=== PATIENT | female | born 1990 | race Caucasian/White ===

== ENCOUNTER → 2017-02-21 | Outpatient (CLI) | payer OTHER ==
[2017-02-17 08:59] VITALS: BMI 47.2
[2017-02-21 12:32] VITALS: BP 116/71; PULSE 97; RESP 16; TEMP 98.2
--- NOTE | 2017-02-21 13:13 | P.CONS ---
History of Present Illness - Reason for Consult Consult date: 02/21/17 Headache - Chief Complaint Headache - History of Present Illness This is a 26-year-old female with history of headache that started in September 2015 with no precipitating events. At that time the patient had what seems to be trigger point injection in the cervical paravertebral area in the ER which gave her 6 months of pain relief, however her pain has been getting worse lately and the headache has been happening at least twice every week it occasionally lasts for about 48 hours. The headache is associated with nausea and vomiting and also photophobia. It is like throbbing headache. It starts on the right side in the occipital area and then radiates to the front and also to the left side. The patient denies any new neurologic symptoms with that. The patient was referred to our clinic by her neurologist for a trial of occipital nerve block. Past Medical History Past Medical History: Thyroid Disorder Additional Past Medical History / Comment(s): migraines History of Any Multi-Drug Resistant Organisms: MRSA Year Discovered:: 06/15/16 MDRO Source:: left fifth finger Past Surgical History: Section, Cholecystectomy Past Anesthesia/Blood Transfusion Reactions: No Reported Reaction Past Psychological History: Depression Smoking Status: Never smoker Past Alcohol Use History: None Reported Past Drug Use History: None Reported - Past Family History Mother Family Medical History: No Reported History Medications and Allergies Home Medications Medication Instructions Recorded Confirmed Type Levothyroxine Sodium [Synthroid] 200 mcg PO DAILY 10/26/16 02/21/17 History Levothyroxine Sodium [Synthroid] 225 mcg PO DAILY 10/26/16 02/21/17 History Allergies Allergy/AdvReac Type Severity Reaction Status Date / Time adhesive Allergy Unknown Verified 02/21/17 12:22 ciprofloxacin [From Cipro] Allergy Unknown Verified 02/21/17 12:22 ciprofloxacin HCl Allergy Unknown Verified 02/21/17 12:22 [From Cipro] latex Allergy Unknown Verified 02/21/17 12:22 Penicillins Allergy Unknown Verified 02/21/17 12:22 Sulfa (Sulfonamide Allergy Unknown Verified 02/21/17 12:22 Antibiotics) Physical Exam Vitals: Vital Signs Temp Pulse Resp BP 02/21/17 12:24 98.2 F 97 16 116/71 - Constitutional General appearance: obese - EENT Eyes: PERRLA - Respiratory Respiratory: bilateral: CTA - Cardiovascular Rhythm: regular Heart sounds: normal: S1, S2 - Neurologic Neurologic: CNII-XII intact - Musculoskeletal Musculoskeletal: gait normal - Psychiatric Psychiatric: A&O x's 3, appropriate affect, intact judgment & insight Neuro exam of the upper extremities showed normal muscle strength and normal and symmetrical biceps tendon reflexes absent triceps reflexes. She has tenderness in the cervical paravertebral musculature more on the right side than the left side and also in the trapezius muscles bilaterally. She also has some tenderness in the occipital area. Assessment and Plan Plan: This is a 26-year-old female with occipital headache with radiation to the frontal area. The pain starts on the right side and radiates to the left side occasionally. She also has myofascial pain in the cervical paravertebral area. Her headache responded to the previous trigger point injection in the ER that gave her 6 months of pain relief. The patient denies any exacerbation of her pain with neck movement at this point. Most likely the patient has migraine headache with remote possibility for cervicogenic headache. Also depression diagnosis includes occipital neuralgia. The patient states that she has never tried any migraine aborting drugs however it looks that she tried propranolol before with no benefits. At this point I will schedule the patient to have bilateral occipital nerve block and also trigger point injection on the right side of her cervical spine in the paravertebral musculature. I'll also place her on Topamax 25 mg twice a day to be increased to 50 mg twice a day after the first week of treatment. The patient was warned about possible side effects of Topamax including urolithiasis, dizziness and she was advised to drink plenty of fluid when she is on Topamax. I thank you for the referral. Time with Patient: Less than 30
== END ==
LOC: PNWHC3 12:13
PROVIDERS: ATTEND Anesthesiology
DX: R51 Headache (principal); G43.909 Migraine, unspecified, not intractable, without status migrainosus; F32.9 Major depressive disorder, single episode, unspecified; Z79.899 Other long term (current) drug therapy; Z91.09 Other allergy status, other than to drugs and biological substances; Z88.0 Allergy status to penicillin; Z88.2 Allergy status to sulfonamides
CPT/HCPCS: 99211

== ENCOUNTER → 2017-04-04 | Outpatient (CLI) | payer OTHER ==
[2017-04-04 11:13] VITALS: BP 122/82; PULSE 82; RESP 16; TEMP 97.4
--- NOTE | 2017-04-05 13:15 | P.PN ---
Subjective This is for visit for this 26 years old female, the chronic history of neck pain and headache, she was diagnosed with occipital neuralgia, myofascial pain syndrome cervical area, that she was started on Topamax 25 mg twice a day, she is scheduled to have with the nerve block and trigger point injections, patient reported that she has some improvement with headaches and she was started on Topamax, denies any side effect of the medication, Physical Examinations : 1-Constitutional : Cooperative , not in acute distress . 2-HEENT : nech ; supple , no Lymphadenopathy , no Thyromegaly , normal thyroid size , normal range of motion . eyes : no ptosis , no icterus, no photophobia . ENT : normal / hard of hearing , normal oropharynx , no Thrush . 3- Respiratory : Chest clear to auscultations Bilaterally , no wheezing , no Rhonchi . 4- Cardiovascular : regular rate and rhythem , S1 , S2 , no S3 , no S4. 5- Gastrointestinal: abdomen soft no tenderness , bowel sounds positive all four quadrents , no organomegally . 6- Genitourinary : Defferred . 7-Integumentary : No cellulitis , no ulcers , normal skin turgor , no cyanotic . 8- neurologic : Cranial nerve II to XII intact , no focal neurological deffecit . tenderness over the occipital nerve bilaterally Mild to moderate trigger point identified in the cervical paravertebral muscles/ Trapezies muscles bilaterally 9-psychatric : alert , oriented X 3 , appropriate affect , intact judgment and insight . 10-Lymphatic : no Lymphadenopathy . 11- musculoskeltal: normal gait , Assessment and plan=1-occipital neuralgia (Bilateral ). 2-myofascial pain syndrome cervical area. Increase Topamax to 50 mg twice a day , started Fioricet 50/300/46 hours when necessary dispense 20. Patient already scheduled to have occipital nerve block bilaterle and possible trigger point injections Objective - Vital Signs Vital signs: Vital Signs Temp 97.4 F L 04/04/17 11:05 Pulse 82 04/04/17 11:05 Resp 16 04/04/17 11:05 BP 122/82 04/04/17 11:05 Pulse Ox 97 04/04/17 11:05 Intake & Output 04/04/17 04/05/17 04/05/17 18:59 06:59 18:59 Weight 108.862 kg
== END ==
LOC: PNWHC3 10:54
PROVIDERS: ATTEND Specialist
DX: M54.81 Occipital neuralgia (principal); M79.1 Myalgia; G89.29 Other chronic pain; Z79.899 Other long term (current) drug therapy
CPT/HCPCS: 99211

== ENCOUNTER 2017-07-18 07:31 | Day surgery (SDC) | payer OTHER ==
[2017-07-11 11:47] VITALS: BMI 43.9
[~2017-07-18 07:31] MED LIST: LACTATED RINGERS 1,000 ML IV SCH
[2017-07-18 07:39] VITALS: TEMP 97.8
[2017-07-18] MEDS ORDERED: LACTATED RINGERS 1,000 ML IV ONE (07:50)
[2017-07-18] MEDS ORDERED: LIDOCAINE 1% 20 ML VIAL (10MG/ML) FOR IV START INTRADERMA ONE (07:51)
--- NOTE | 2017-07-18 08:42 | P.PCN ---
Date of Procedure: 07/18/17 Preoperative Diagnosis: Bilateral occipital neuralgia Postoperative Diagnosis: Same as above Procedure(s) Performed: Bilateral occipital nerve block Implants: Anesthesia: other (Moderate conscious sedation with IV Versed only) Surgeon: Jl Castillo Pathology: none sent Condition: stable Disposition: PACU Indications for Procedure: Operative Findings: Description of Procedure: The patient was seen in preoperative holding area consent was obtained then she was brought into the procedure 1 placed in prone position. Skin was prepped with DuraPrep and draped in a sterile manner. The arteries were palpated and a 25-gauge 1-1/2 inch needle was used to go through the skin and to infiltrate 3 MLS of Marcaine 0.5% around the occipital artery on each side at the nuchal line. The Marcaine was mixed with only 10 mg of Kenalog. Patient tolerated procedure well.
[2017-07-18] MEDS ORDERED: IV FLUID CONTINUATION 1,000 ML IV ONE ×2 (08:46)
[2017-07-18 09:05] VITALS: RESP 18
[2017-07-18] MEDS ORDERED: fentaNYL (PF) 50 MCG/ML 2 ML AMP IVP ONE (09:24)
[2017-07-18 09:29] VITALS: BP 120/71; PULSE 82
== END 2017-07-18 09:58 | disposition home or self-care (01) ==
LOC: ORPAIN 07:31
PROVIDERS: ATTEND Anesthesiology
DX: M54.81 Occipital neuralgia (principal); Z88.0 Allergy status to penicillin
CPT/HCPCS: 81025; 64450; 99152; J2250; J3301; J3010

== ENCOUNTER → 2017-08-23 | Outpatient (CLI) | payer OTHER ==
[2017-08-23 14:44] VITALS: BP 149/92; PULSE 96; RESP 18; TEMP 98.5
--- NOTE | 2017-08-23 18:19 | P.PN ---
Subjective This is follow-up visit for this patient with a history of severe and chronic headache she was diagnosed with occipital neuralgia, we have done of bilateral occipital nerve block and this provided the patient with significant decrease of her headache, she had the significant improvement in the frequency and the intensity of the headache, she is currently on,, 1-Topamax 50 mg twice a day 2-Fioricet 50/300/40, and this medication was not covered by her insurance she has to pay minaya for it Patient denies any side effects of the medication, denies excessive drowsiness or sleepiness, denies suicidal ideation, and reports that the current pain medication is NOT helping To control the pain and improve activity of daily living Patient denies any motor or sensory deficit , patient denies any fever or night sweats, denies any change in the bowel movements or urination Physical Examinations : 1-Constitutiona : Cooperative , not in acute distress . 2-HEENT : nech ; supple , no Lymphadenopathy , no Thyromegaly , normal thyroid size . eyes : no ptosis , no icterus, no photophobia . ENT : normal of hearing , normal oropharynx , no Thrush . 3- Respiratory : Chest clear to auscultations Bilaterally , no wheezing , no Rhonchi . 4- Cardiovascular : regular rate and rhythem , S1 , S2 , no S3 , no S4. 5- Gastrointestinal : abdomen soft no tenderness , bowel sounds positive all four quadrents , no organomegally . 6- Genitourinary : Defferred . 7- neurologic : Cranial nerve II to XII intact , no focal neurological deffecit . 8-psychatric : alert , oriented X 3 , appropriate affect , intact judgment and insight . 9-Lymphatic : no Lymphadenopathy . 10- musculoskeltal : exams of the cervical spine = motor strength normal bilateral upper extremities Mild tenderness over the occipital nerves bilaterally exams of the Lumber spine = motor strength lower extremities ,thigh and legs .5/5 Assessment and plan = Chronic headache/occipital neuralgia status post bilateral occipital nerve block, headache improved significantly, Increase Topamax to 75 mg twice a day, patient concerned about the accuracy of that is not covered by her insurance and she has to pay minaya for it , and will start patient on Ultram 50 mg 1 tablet by mouth every 8 hours, dispensed 30 per month with 2 refills prescription for Topamax 75 mg twice a day dispense 60 with 2 refills and medication management including narcotics and adjuvant medication were discussed with the patient and all the questions answered . Patient will follow up with the pain clinic in 3 months, Objective - Vital Signs Vital signs: Vital Signs Temp 98.5 F 08/23/17 14:41 Pulse 96 08/23/17 14:41 Resp 18 08/23/17 14:41 BP 149/92 08/23/17 14:41 Pulse Ox Intake & Output 08/22/17 08/23/17 08/23/17 18:59 06:59 18:59 Weight 110.223 kg
== END | disposition home or self-care (01) ==
LOC: PNWHC3 14:28
PROVIDERS: ATTEND Specialist
DX: M54.81 Occipital neuralgia (principal); Z79.899 Other long term (current) drug therapy
CPT/HCPCS: 99211

== ENCOUNTER → 2017-11-30 | Outpatient (CLI) | payer OTHER ==
--- NOTE | 2017-11-30 13:14 | P.PN ---
Progress Note - Text Progress Note Date: 11/30/17 Patient returns for followup for chronic headache pain. Patient previously underwent bilateral occipital NB x 1, which helped substantially with her pain initially, but now this pain has returned to some extent. Patient continues on tramadol medications for pain with some relief. Patient denies adverse drug effects from medications. Today, pt denies new-onset weakness, bowel/bladder incontinence, or any other signs or symptoms of cauda equina syndrome. There are no signs of acute intoxication, and no indications of medication diversion or overuse. In addition to above, 13-point review of systems is also negative for chest pain , shortness of breath, changes in vision, changes in hearing, new onset weakness , abdominal pain, diarrhea, extreme fatigue, malaise, fever, skin changes, homicidal or suicidal ideation, or bowel or bladder incontinence. Vital Signs: Reviewed in EMR Gen: WDWN, AAOx3, NAD HEENT: NCAT, EOMI, hearing grossly normal, tenderness over occipital ridges + bilateral Pulm: resp unlabored Abd: soft, NT, ND, obese Neck: supple, trachea midline ROM in flexion cervical spine: reduced ROM in extension cervical spine: reduced Cervical paravertebral tenderness: + Cervical Facet tenderness: + bilateral, R > L Spurling's: neg Neuro: CN II-XII grossly intact, muscle strength lower extremities PRESERVED Imaging: Reviewed in EMR Assessment: 1. occipital neuralgia 2. morbid obesity 3. chronic pain syndrome Plan: 1. Explanation: Opioid and psychological risk scores were reviewed. Diagnoses , prognoses, and multiple treatment options including but not limited to physical therapy, interventional therapies, adjuvant medical therapies, narcotic medication therapies, and surgery were discussed with the patient and all questions were answered to the patient's satisfaction. 2. Opioid agreement: Patient has previously signed narcotic agreement, and was orally counseled to not overuse, abuse, divert, or cell medications, and to take them as prescribed by only 1 healthcare provider. The patient was also counseled to store opioid medications in a safe and preferably locked location. Patient was also counseled against driving or operating heavy equipment while using narcotic medications and also to not use alcohol or any illicit or recreational drugs. The patient verbalized understanding that lack of compliance with any of the above and likely result in failure to renew narcotic prescriptions, possible discharge from the clinic, and possible legal ramifications thereafter if indicated. 3. Counseling: The patient was counseled extensively on SMOKING CESSATION, BODY MASS INDEX, EXERCISE. Specifically, the patient was instructed regarding the importance of smoking cessation, weight control, and exercise in the context of both chronic pain and overall health. 4. Procedures: none for now 5. Consultations: None 6. Investigations: None 7. Medications: Fioricet #20 with no refill, Topamax with five refills 8. Disposition: f/u as needed; patient to call if she needs another occipital NB PQRS measures: 1-Patient's medications are documented in the chart. 2-Tobacco use is negative 3-Patient has not had a pneumococcal vaccine. 4-Advanced care planning discussed, patient unable to give. 5-Opioid contract signed with the patient. 6-Pain positive, follow-up visit or procedure scheduled 7-Patient's blood pressure measured and documented, and WNL 8-Patient's weight was measured, and body mass index ABOVE the normal limits, and counseling was done. Patient instructed to follow up with PCP. 9-Patient WAS NOT identified as an unhealthy alcohol user.
[2017-11-30 23:28] VITALS: BP 106/74; PULSE 89; RESP 18
== END | disposition home or self-care (01) ==
LOC: PNWHC3 12:25
PROVIDERS: ATTEND Anesthesiology
DX: M54.81 Occipital neuralgia (principal); E66.01 Morbid (severe) obesity due to excess calories; G89.4 Chronic pain syndrome; Z79.891 Long term (current) use of opiate analgesic
CPT/HCPCS: 99211

== ENCOUNTER 2020-09-22 13:30 | Emergency (ER) | payer OTHER ==
[2020-09-22 13:34] VITALS: BP 142/91; PULSE 87; RESP 18; TEMP 97.7
[2020-09-22] MEDS ORDERED: DIPH,PERTUS(ACELL)TETVAC-LF 0.5 ML VIAL IM ONE (13:59)
[2020-09-22] MEDS ORDERED: TOPICAL SKIN ADHESIVE 1 EACH AMP TOPICAL ONE (13:59)
--- NOTE | 2020-09-22 14:39 | ED ---
Wound/Laceration HPI - General Chief Complaint: Wound/Laceration Stated Complaint: Thumb Lac Time Seen by Provider: 09/22/20 13:38 Source: patient Mode of arrival: ambulatory Limitations: no limitations - History of Present Illness Initial Comments: Patient is a 30-year-old female presenting to the emergency Department with complaints of a laceration to her right thumb. Patient states she was opening a can and the top of the fluid actually cut her right thumb, palmar aspect. Her tetanus vaccine is not up-to-date. She is not on blood thinners. Bleeding is controlled at this time with a Band-Aid. She has no further complaints at this time. - Related Data Home Medications Medication Instructions Recorded Confirmed Levothyroxine Sodium [Synthroid] 225 mcg PO DAILY 10/26/16 11/30/17 Acetaminophen [Tylenol] 500 mg PO Q4HR PRN 04/04/17 11/30/17 Previous Rx's Medication Instructions Recorded Butalb/Acetaminophen/Caffeine 1 cap PO DAILY PRN #30 cap 11/30/17 [Fioricet 50-300-40 mg Capsule] Topiramate [Topamax] 75 mg PO BID #60 tab 11/30/17 traMADol HCL [Ultram] 50 mg PO Q6HR PRN #30 tab 11/30/17 Allergies Allergy/AdvReac Type Severity Reaction Status Date / Time adhesive Allergy Swelling Verified 09/22/20 13:34 ciprofloxacin [From Cipro] Allergy Unknown Verified 09/22/20 13:34 ciprofloxacin HCl Allergy Unknown Verified 09/22/20 13:34 [From Cipro] latex Allergy Swelling Verified 09/22/20 13:34 Penicillins Allergy Unknown Verified 09/22/20 13:34 Sulfa (Sulfonamide Allergy Unknown Verified 09/22/20 13:34 Antibiotics) Review of Systems ROS Statement: Those systems with pertinent positive or pertinent negative responses have been documented in the HPI. ROS Other: All systems not noted in ROS Statement are negative. Past Medical History Past Medical History: Thyroid Disorder Additional Past Medical History / Comment(s): migraines History of Any Multi-Drug Resistant Organisms: MRSA Date of last positivie culture/infection: 06/15/16 MDRO Source:: left fifth finger Past Surgical History: Section, Cholecystectomy Past Anesthesia/Blood Transfusion Reactions: No Reported Reaction Past Psychological History: Depression Smoking Status: Never smoker Past Alcohol Use History: Occasional Past Drug Use History: None Reported - Past Family History Mother Family Medical History: No Reported History General Exam - General Exam Comments Initial Comments: GENERAL: Patient is well-developed and well-nourished. Patient is nontoxic and in no acute distress. HEAD: Atraumatic, normocephalic. EYES: Pupils equal round and reactive to light, extraocular movements intact, sclera anicteric, conjunctiva are normal. Eyelids were unremarkable. ENT: TMs normal, nares patent, oropharynx clear without exudates. Moist mucous membranes. NECK: Normal range of motion, supple without lymphadenopathy or JVD. LUNGS: Unlabored respirations. Breath sounds clear to auscultation bilaterally and equal. No wheezes rales or rhonchi. HEART: Regular rate and rhythm without murmurs, rubs or gallops. ABDOMEN: Soft, nontender, normoactive bowel sounds. No guarding, no rebound. No masses appreciated. : Deferred MUSCULOSKELETAL: Normal extremities with adequate strength and normal range of motion, no pitting or edema. No clubbing or cyanosis. NEUROLOGICAL: Patient is alert and oriented x 3. Normal speech, normal gait. PSYCH: Normal mood, normal affect. SKIN: Warm, Dry, normal turgor. Patient has a 1 cm superficial laceration to the right distal thumb, palmar aspect. No active bleeding. Limitations: no limitations Course Vital Signs 09/22/20 13:32 Temperature 97.7 F Pulse Rate 87 Respiratory 18 Rate Blood Pressure 142/91 O2 Sat by Pulse 96 Oximetry Procedures - Laceration Laceration #1 Consent Obtained: verbal consent Indication: laceration Site: hand (Right thumb) Size (cm): 1 Description: linear Depth: simple, single layer Pre-repair: irrigated extensively Patient Tolerated Procedure: well Additional Comments: Patient wound was cleaned, closed with topical skin adhesive. I did reinforce the wound with Steri-Strips. Patient tolerated procedure well. Medical Decision Making - Medical Decision Making Patient is a 30-year-old female here with a 1 cm superficial laceration to the distal aspect of her right thumb, palmar aspect. We did update her tetanus vaccine today. The wound was cleaned, closed with topical skin adhesive. I did apply Steri-Strips and a Band-Aid as well. She tolerated procedure well. She is stable for discharge. Recommended to keep covered while working. Do not soak the thumb. Disposition Clinical Impression: Laceration of right thumb Disposition: HOME SELF-CARE Condition: Stable Instructions (If sedation given, give patient instructions): Skin Adhesive Care (ED) Additional Instructions: Please return to the Emergency Department if symptoms worsen or any other concerns. Do not soak the wound in a tub or pool. Keep covered while working. Is patient prescribed a controlled substance at d/c from ED?: No Referrals: Maldonado Cottrell DO [Primary Care Provider] - 1-2 days
== END 2020-09-22 14:43 | disposition home or self-care (01) ==
LOC: EC 13:30
DX: S61.011A Laceration without foreign body of right thumb without damage to nail, initial encounter (principal); Z23 Encounter for immunization; E07.9 Disorder of thyroid, unspecified; Z79.890 Hormone replacement therapy; Z91.048 Other nonmedicinal substance allergy status; Z88.1 Allergy status to other antibiotic agents; Z88.0 Allergy status to penicillin; Z88.2 Allergy status to sulfonamides; Z91.040 Latex allergy status; W26.8XXA Contact with other sharp object(s), not elsewhere classified, initial encounter; Y92.009 Unspecified place in unspecified non-institutional (private) residence as the place of occurrence of the external cause
CPT/HCPCS: 12001; 90471; 90715; 99282

== ENCOUNTER → 2021-05-18 | Outpatient (CLI) | payer OTHER ==
--- NOTE | 2021-05-19 08:20 | XR ---
EXAMINATION TYPE: XR chest 2V DATE OF EXAM: 05/18/2021 COMPARISON: NONE HISTORY: R05 COUGH TECHNIQUE: Frontal and lateral views of the chest are obtained. FINDINGS: There is no focal air space opacity. No evidence for pneumothorax. No pleural effusion. The cardiac silhouette size is within normal limits. The osseous structures are grossly intact. IMPRESSION: 1. No acute cardiopulmonary process.
== END | disposition home or self-care (01) ==
LOC: RADXRYALE 16:39
PROVIDERS: ATTEND Family Medicine
DX: R05 Cough (principal)
CPT/HCPCS: 71046

== ENCOUNTER 2021-09-15 18:47 | Emergency (ER) | payer BC, OTHER ==
[2021-09-15 19:25] VITALS: RESP 20; TEMP 98.4
[2021-09-15] MEDS ORDERED: KETOROLAC 15 MG/ML 1 ML VIAL IVP STA (21:26)
--- NOTE | 2021-09-15 21:27 | ED ---
SOB HPI - General Chief Complaint: Shortness of Breath Stated Complaint: covid+MUKUND Time Seen by Provider: 09/15/21 19:20 Source: patient, family Mode of arrival: ambulatory Limitations: no limitations - History of Present Illness Initial Comments: 31-year-old female with past medical history of asthma presents emergency department after she tested positive for covid. States that she has had symptoms since Tuesday. She's had cough, shortness of breath and fevers. She went to an urgent care on Tuesday and tested positive. Called her primary care doctor who placed her on some vitamins. States she's been using her inhaler without any improvement. She denies nausea, vomiting, diarrhea. No concern for . No other alleviating, precipitating or modifying factors - Related Data Home Medications Medication Instructions Recorded Confirmed Levothyroxine Sodium [Synthroid] 225 mcg PO DAILY 10/26/16 11/30/17 Acetaminophen [Tylenol] 500 mg PO Q4HR PRN 04/04/17 11/30/17 Previous Rx's Medication Instructions Recorded Butalb/Acetaminophen/Caffeine 1 cap PO DAILY PRN #30 cap 11/30/17 [Fioricet 50-300-40 mg Capsule] Topiramate [Topamax] 75 mg PO BID #60 tab 11/30/17 traMADol HCL [Ultram] 50 mg PO Q6HR PRN #30 tab 11/30/17 predniSONE [Deltasone] 20 mg PO BID #10 tab 09/15/21 Allergies Allergy/AdvReac Type Severity Reaction Status Date / Time adhesive Allergy Swelling Verified 09/15/21 19:25 ciprofloxacin [From Cipro] Allergy Unknown Verified 09/15/21 19:25 ciprofloxacin HCl Allergy Unknown Verified 09/15/21 19:25 [From Cipro] latex Allergy Swelling Verified 09/15/21 19:25 Penicillins Allergy Unknown Verified 09/15/21 19:25 Sulfa (Sulfonamide Allergy Unknown Verified 09/15/21 19:25 Antibiotics) Review of Systems ROS Statement: Those systems with pertinent positive or pertinent negative responses have been documented in the HPI. ROS Other: All systems not noted in ROS Statement are negative. Past Medical History Past Medical History: Thyroid Disorder Additional Past Medical History / Comment(s): migraines History of Any Multi-Drug Resistant Organisms: MRSA Date of last positivie culture/infection: 07/19/16 MDRO Source:: left fifth finger Past Surgical History: Section, Cholecystectomy Past Anesthesia/Blood Transfusion Reactions: No Reported Reaction Past Psychological History: Depression Smoking Status: Never smoker Past Alcohol Use History: Occasional Past Drug Use History: None Reported - Past Family History Mother Family Medical History: No Reported History General Exam Limitations: no limitations General appearance: alert, in no apparent distress Head exam: Present: atraumatic, normocephalic, normal inspection Eye exam: Present: normal appearance, PERRL, EOMI. Absent: scleral icterus, conjunctival injection, periorbital swelling ENT exam: Present: normal exam, mucous membranes moist Neck exam: Present: normal inspection. Absent: tenderness, meningismus, lymphadenopathy Respiratory exam: Present: normal lung sounds bilaterally. Absent: respiratory distress, wheezes, rales, rhonchi, stridor Cardiovascular Exam: Present: regular rate, normal rhythm, normal heart sounds. Absent: systolic murmur, diastolic murmur, rubs, gallop, clicks GI/Abdominal exam: Present: soft, normal bowel sounds. Absent: distended, tenderness, guarding, rebound, rigid Extremities exam: Present: normal inspection, full ROM, normal capillary refill. Absent: tenderness, pedal edema, joint swelling, calf tenderness Back exam: Present: normal inspection Neurological exam: Present: alert, oriented X3, CN II-XII intact Psychiatric exam: Present: normal affect, normal mood Skin exam: Present: warm, dry, intact, normal color. Absent: rash Course Vital Signs 09/15/21 09/15/21 19:20 22:06 Temperature 98.4 F Pulse Rate 109 H 98 Respiratory 20 20 Rate Blood Pressure 151/85 128/83 O2 Sat by Pulse 96 97 Oximetry Medical Decision Making - Medical Decision Making Upon arrival patient was placed into room 32. Thorough history and physical exam is performed. IV is established patient is given a dose of Toradol. Laboratory studies were conducted. Chest x-rays performed which demonstrates possible minimal infiltrate right lower lobe. Patient is given antibody infusion. She is instructed to buy a pulse ox. She is given 125 mg of solumedrol and will be placed on prednisone in the outpatient setting due to her history of asthma. She needs follow-up with her primary care doctor in 2-4 days. Return to the emergency room for any new or worsening symptoms. Patient was discharged in stable condition - Lab Data Result diagrams: 09/15/21 21:48 09/15/21 21:48 Lab Results 09/15/21 09/15/21 Range/Units 21:48 21:48 WBC 5.6 (3.8-10.6) k/uL RBC 5.13 (3.80-5.40) m/uL Hgb 15.3 (11.4-16.0) gm/dL Hct 46.3 H (34.0-46.0) % MCV 90.2 (80.0-100.0) fL MCH 29.8 (25.0-35.0) pg MCHC 33.1 (31.0-37.0) g/dL RDW 12.6 (11.5-15.5) % Plt Count 242 (150-450) k/uL MPV 8.4 Neutrophils % 45 % Lymphocytes % 44 % Monocytes % 6 % Eosinophils % 2 % Basophils % 1 % Neutrophils # 2.5 (1.3-7.7) k/uL Lymphocytes # 2.5 (1.0-4.8) k/uL Monocytes # 0.3 (0-1.0) k/uL Eosinophils # 0.1 (0-0.7) k/uL Basophils # 0.1 (0-0.2) k/uL Sodium 141 (137-145) mmol/L Potassium 4.5 (3.5-5.1) mmol/L Chloride 105 (98-107) mmol/L Carbon Dioxide 26 (22-30) mmol/L Anion Gap 10 mmol/L BUN 14 (7-17) mg/dL Creatinine 0.83 (0.52-1.04) mg/dL Est GFR (CKD-EPI)AfAm >90 (>60 ml/min/1.73 sqM) Est GFR (CKD-EPI)NonAf >90 (>60 ml/min/1.73 sqM) Glucose 101 H (74-99) mg/dL Calcium 9.5 (8.4-10.2) mg/dL Total Bilirubin 0.5 (0.2-1.3) mg/dL AST 27 (14-36) U/L ALT 19 (4-34) U/L Alkaline Phosphatase 102 (38-126) U/L Total Protein 7.6 (6.3-8.2) g/dL Albumin 4.4 (3.5-5.0) g/dL - EKG Data EKG Comments: EKG demonstrates normal sinus rhythm with a ventricular rate of 99. [place] interval 156. QRS 72. QTC of 428. No acute ST segment elevations or depressions concerning for ischemic changes Disposition Clinical Impression: COVID-19 Disposition: HOME SELF-CARE Condition: Stable Instructions (If sedation given, give patient instructions): Coronavirus Disease 2019 (COVID-19) Additional Instructions: You received antibody infusion today. Use your inhaler at home every 4 hours. Take the steroids as directed. Follow up with your doctor. Return to the ED for any new or worsening symptoms. Prescriptions: predniSONE [Deltasone] 20 mg PO BID #10 tab Is patient prescribed a controlled substance at d/c from ED?: No Referrals: Maldonado Cottrell DO [Primary Care Provider] - 1-2 days Time of Disposition: 23:17
[2021-09-15 22:12] LABS: Basophils # (A) 0.1 k/uL (0-0.2); Basophils % (A) 1 %; Eosinophils # (A) 0.1 k/uL (0-0.7); Eosinophils % (A) 2 %; HCT 46.3 % (34.0-46.0); HGB 15.3 gm/dL (11.4-16.0); Lymphocytes # (A) 2.5 k/uL (1.0-4.8); Lymphocytes % (A) 44 %; MCH 29.8 pg (25.0-35.0); MCHC 33.1 g/dL (31.0-37.0); MCV 90.2 fL (80.0-100.0); Mean Platelet Volume 8.4; Monocytes # (A) 0.3 k/uL (0-1.0); Monocytes % (A) 6 %; Neutrophils # (A) 2.5 k/uL (1.3-7.7); Neutrophils % (A) 45 %; Platelet Count 242 k/uL (150-450); RBC 5.13 m/uL (3.80-5.40); RDW 12.6 % (11.5-15.5); WBC 5.6 k/uL (3.8-10.6)
[2021-09-15 22:15] VITALS: BP 128/83; PULSE 98
--- NOTE | 2021-09-15 22:22 | XR ---
EXAMINATION TYPE: XR chest 1V portable DATE OF EXAM: 09/15/2021 COMPARISON: 05/18/2021 HISTORY: Cough. Short of breath. TECHNIQUE: Single view FINDINGS: Heart and mediastinum are normal. There is slight increased density at the right lung base. . Diaphragm is normal. Bony thorax is intact. IMPRESSION: There is possible minimal infiltrate right lower lobe that is a change compared to old ex am.
[2021-09-15 22:28] LABS: ALT 19 U/L (4-34); AST 27 U/L (14-36); African American GFR (CKD) >90 (>60 ml/min/1.73 sqM); Albumin 4.4 g/dL (3.5-5.0); Alkaline Phosphatase 102 U/L (38-126); Anion Gap 10 mmol/L; Blood Urea Nitrogen 14 mg/dL (7-17); Calcium 9.5 mg/dL (8.4-10.2); Carbon Dioxide 26 mmol/L (22-30); Chloride 105 mmol/L (98-107); Glucose 101 mg/dL (74-99); Non-African American GFR(CKD) >90 (>60 ml/min/1.73 sqM); Potassium 4.5 mmol/L (3.5-5.1); Sodium 141 mmol/L (137-145); Total Bilirubin 0.5 mg/dL (0.2-1.3); Total Protein 7.6 g/dL (6.3-8.2)
[2021-09-15] MEDS ORDERED: SODIUM CHLORIDE 0.9% 50 ML IVPB ONE (22:30)
[2021-09-15] MEDS ORDERED: CASIRIVIMAB (REGN10933) (EUA) 600 MG, IMDEVIMAB (REGN10987) (EUA) 600 MG in SODIUM CHLO... IVPB ONE (22:30)
[2021-09-15] MEDS ORDERED: methylPREDNISolone SOD SUCCI 125 MG/2 ML VIAL IV STA (23:04)
== END 2021-09-16 00:27 | disposition home or self-care (01) ==
LOC: EC 18:47
DX: U07.1 COVID-19 (principal); Z79.890 Hormone replacement therapy; Z79.52 Long term (current) use of systemic steroids; Z79.899 Other long term (current) drug therapy
CPT/HCPCS: 99285 ×2; 96365 ×2; 96375 ×3; 96361 ×2; 36415; 93005; 80053; 85025; 71045; J2930; J1885; Q0243

== ENCOUNTER → 2022-06-25 | Outpatient (CLI) | payer BC ==
--- NOTE | 2022-06-25 16:07 | XR ---
EXAMINATION TYPE: XR chest 2V DATE OF EXAM: 06/25/2022 2:54 PM COMPARISON: Chest radiographs from 09/15/2021. TECHNIQUE: XR chest 2V Frontal and lateral views of the chest. CLINICAL INDICATION:Female, 32 years old with history of [id number] SOB,ASTHMA,COVID F/U; FINDINGS: Lungs/Pleura: There is no evidence of pleural effusion, focal consolidation, or pneumothorax. Pulmonary vascularity: Unremarkable. Heart/mediastinum: Cardiomediastinal silhouette is unremarkable. Musculoskeletal: No acute osseous pathology. IMPRESSION: No acute cardiopulmonary disease/process.
== END | disposition home or self-care (01) ==
LOC: RADXRYALE 14:41
PROVIDERS: ATTEND Family Medicine
DX: R06.02 Shortness of breath (principal); J45.40 Moderate persistent asthma, uncomplicated; U09.9 Post COVID-19 condition, unspecified
CPT/HCPCS: 71046

== ENCOUNTER → 2023-01-01 | Outpatient (CLI) | payer BC ==
[2023-01-01 10:18] LABS: Basophils # (A) 0.1 k/uL (0-0.2); Basophils % (A) 1 %; Eosinophils # (A) 0.1 k/uL (0-0.7); Eosinophils % (A) 1 %; HCT 41.5 % (34.0-46.0); HGB 13.6 gm/dL (11.4-16.0); Lymphocytes # (A) 1.9 k/uL (1.0-4.8); Lymphocytes % (A) 32 %; MCH 29.6 pg (25.0-35.0); MCHC 32.8 g/dL (31.0-37.0); MCV 90.3 fL (80.0-100.0); Mean Platelet Volume 8.8; Monocytes # (A) 0.2 k/uL (0-1.0); Monocytes % (A) 4 %; Neutrophils # (A) 3.5 k/uL (1.3-7.7); Neutrophils % (A) 60 %; Platelet Count 181 k/uL (150-450); RDW 13.1 % (11.5-15.5); WBC 5.8 k/uL (3.8-10.6)
[2023-01-01 10:40] LABS: Total Eosinophil Count 70 #EOS/uL (150-300)
[2023-01-01 17:18] LABS: ALT 22 U/L (8-44); AST 17 U/L (13-35); African American GFR (CKD) 121.7 (60.0-200.0); Albumin/Globulin Ratio 1.92 (1.60-3.17); Alkaline Phosphatase 80 U/L (41-126); BUN/Creat Ratio 15.99 Ratio (12.00-20.00); Blood Urea Nitrogen 11.9 mg/dL (9.0-27.0); Calcium 9.1 mg/dL (8.7-10.3); Carbon Dioxide 23.8 mmol/L (20.0-27.5); Chloride 106 mmol/L (96-109); Chol/HDL Ratio 3.88 Ratio; Globulin 2.1 g/dL (1.6-3.3); Glucose 98 mg/dL (70-110); LDL Cholesterol,Calculated 114.8 mg/dL (0.0-131.0); Potassium 4.4 mmol/L (3.5-5.5); Sodium 139 mmol/L (135-145); Total Protein 6.1 g/dL (6.2-8.2)
[2023-01-03 11:14] LABS: Alternaria alternata IgE <0.10 kU/L; Aspergillus fumagatus IgE <0.10 kU/L; Birch IgE <0.10 kU/L; Cat Epith & Dander IgE <0.10 kU/L; Cladosporian herbarum IgE <0.10 kU/L; Cockroach IgE <0.10 kU/L; Dermato. farinae IgE <0.10 kU/L; Dog Dander IgE <0.10 kU/L; Elm IgE <0.10 kU/L; Maple (Box Elder) IgE <0.10 kU/L; Oak IgE <0.10 kU/L; Ragweed,Common IgE <0.10 kU/L; Red Top (Bentgrass) IgE <0.10 kU/L
== END | disposition home or self-care (01) ==
LOC: LABWHC1 08:46
PROVIDERS: ATTEND Internal Medicine Critical Care Medicine
DX: G43.009 Migraine without aura, not intractable, without status migrainosus (principal); J45.40 Moderate persistent asthma, uncomplicated; E66.9 Obesity, unspecified; E03.9 Hypothyroidism, unspecified
CPT/HCPCS: 36415; 80053; 80061; 82785; 84439; 84443; 85008; 85025; 86003

== ENCOUNTER → 2023-06-30 | Outpatient (CLI) | payer BC ==
[2023-06-30 16:56] LABS: Basophils % (A) 1.4 %; Eosinophils # (A) 0.12 X 10*3/uL (0.04-0.35); Eosinophils % (A) 1.7 %; HCT 42.5 % (37.2-46.3); HGB 13.5 d/dL (12.0-15.0); Lymphocytes # (A) 1.88 X 10*3/uL (0.90-5.00); Lymphocytes % (A) 26.5 %; MCH 28.5 pg (27.0-32.0); MCHC 31.8 d/dL (32.0-37.0); MCV 89.9 FL (80.0-97.0); Mean Platelet Volume 11.3 FL (9.5-12.2); Monocytes # (A) 0.42 X 10*3/uL (0.20-1.00); Monocytes % (A) 5.9 %; NRBC Per 100 WBC 0 X 10*3/uL (0.00-0.01); Neutrophils # (A) 4.54 X 10*3/uL (1.80-7.70); Neutrophils % (A) 64.1 %; Platelet Count 254 X 10*3/uL (140-440); RBC 4.73 X 10*6/uL (4.10-5.20); RDW 12.6 % (11.5-14.5); WBC 7.09 X 10*3/uL (4.50-10.00)
[2023-06-30 17:18] LABS: ALT 17 U/L (8-44); AST 20 U/L (13-35); Albumin 4.6 d/dL (3.8-4.9); Albumin/Globulin Ratio 1.77 Ratio (1.60-3.17); Alkaline Phosphatase 101 U/L (41-126); Blood Urea Nitrogen 16.8 mg/dL (9.0-27.0); Calcium 9.3 mg/dL (8.7-10.3); Chloride 107 mmol/L (96-109); Chol/HDL Ratio 4.56 Ratio; Globulin 2.6 d/dL (1.6-3.3); Glucose 97 mg/dL (70-110); LDL Cholesterol,Calculated 153.1 mg/dL (0.0-131.0); Potassium 4.7 mmol/L (3.5-5.5); Sodium 140 mmol/L (135-145); Total Bilirubin 0.4 mg/dL (0.3-1.2); Total Protein 7.2 d/dL (6.2-8.2); VLDL Calculation 19.44 mg/dL (5.00-40.00)
== END | disposition home or self-care (01) ==
LOC: LABWHC1 08:26
PROVIDERS: ATTEND Family Medicine
DX: E03.9 Hypothyroidism, unspecified (principal); B66 Other fluke infections; G43.009 Migraine without aura, not intractable, without status migrainosus
CPT/HCPCS: 36415; 80053; 80061; 84443; 85025

== ENCOUNTER 2024-06-21 20:26 | Emergency (ER) | payer BC ==
[2024-06-21 20:46] VITALS: RESP 18
--- NOTE | 2024-06-21 21:51 | ED ---
Back Pain HPI - General Chief Complaint: Back Pain/Injury Stated Complaint: back pain Time Seen by Provider: 06/21/24 21:48 Source: patient, RN notes reviewed Limitations: no limitations - History of Present Illness Initial Comments: 34-year-old female with no significant past medical history presents ER with low back pain x 2 days. States she was cleaning her station at work when she suddenly felt pain in her lower back. States pain is in the middle and left side of the lower back. Denies radiation down legs. Denies numbness, tingling, weakness of the legs. Denies dysuria, hematuria, urinary frequency, urinary urgency. Denies fever or chills, abdominal pain. Loss of bowel or bladder control. She has been taking ibuprofen with little relief. Denies history of k idney stones - Related Data Home Medications Medication Instructions Recorded Confirmed Levothyroxine Sodium [Synthroid] 225 mcg PO DAILY 10/26/16 11/30/17 Acetaminophen [Tylenol] 500 mg PO Q4HR PRN 04/04/17 11/30/17 Previous Rx's Medication Instructions Recorded Butalb/Acetaminophen/Caffeine 1 cap PO DAILY PRN #30 cap 11/30/17 [Fioricet 50-300-40 mg Capsule] Topiramate [Topamax] 75 mg PO BID #60 tab 11/30/17 traMADol HCL [Ultram] 50 mg PO Q6HR PRN #30 tab 11/30/17 predniSONE [Deltasone] 20 mg PO BID #10 tab 09/15/21 Cyclobenzaprine [Flexeril] 10 mg PO TID PRN #15 tab 06/21/24 Lidocaine 5% Patch [Lidoderm 5% 1 patch TOPICAL DAILY 7 Days #7 06/21/24 Patch] patch Allergies Allergy/AdvReac Type Severity Reaction Status Date / Time adhesive Allergy Swelling Verified 06/21/24 20:46 ciprofloxacin [From Cipro] Allergy Unknown Verified 06/21/24 20:46 ciprofloxacin HCl Allergy Unknown Verified 06/21/24 20:46 [From Cipro] latex Allergy Swelling Verified 06/21/24 20:46 Penicillins Allergy Unknown Verified 06/21/24 20:46 Sulfa (Sulfonamide Allergy Unknown Verified 06/21/24 20:46 Antibiotics) Review of Systems ROS Statement: Those systems with pertinent positive or pertinent negative responses have been documented in the HPI. ROS Other: All systems not noted in ROS Statement are negative. Past Medical History Past Medical History: Thyroid Disorder Additional Past Medical History / Comment(s): migraines History of Any Multi-Drug Resistant Organisms: MRSA Date of last positivie culture/infection: 06/15/16 MDRO Source:: left fifth finger Past Surgical History: Section, Cholecystectomy Past Anesthesia/Blood Transfusion Reactions: No Reported Reaction Past Psychological History: Depression Smoking Status: Vaper Past Alcohol Use History: Occasional Past Drug Use History: None Reported - Past Family History Mother Family Medical History: No Reported History General Exam Limitations: no limitations General appearance: alert, in no apparent distress Head exam: Present: atraumatic, normocephalic, normal inspection Eye exam: Present: normal appearance, PERRL, EOMI. Absent: scleral icterus, conjunctival injection, periorbital swelling Extremities exam: Present: normal inspection, full ROM, normal capillary refill. Absent: tenderness, pedal edema, joint swelling, calf tenderness Back exam: Present: normal inspection, full ROM, other (Full strength and range of motion of bilateral hips. No saddle anesthesia. Full sensation and dorsalis pedis pulses bilaterally.). Absent: tenderness, CVA tenderness (R), CVA tenderness (L), muscle spasm, paraspinal tenderness, rash noted Neurological exam: Present: alert, oriented X3 Psychiatric exam: Present: normal affect, normal mood Course Vital Signs 06/21/24 20:37 Temperature 98.2 F Pulse Rate 87 Respiratory 18 Rate Blood Pressure 111/66 O2 Sat by Pulse 99 Oximetry Medical Decision Making - Medical Decision Making Was pt. sent in by a medical professional or institution (, PA, FIRE EXTINGUISHER TECHNICIAN, urgent care, hospital, or shelter...) When possible be specific @ -No Did you speak to anyone other than the patient for history (EMS, parent, family, police, friend...)? What history was obtained from this source @ -No Did you review nursing and triage notes (agree or disagree)? Why? @ -I reviewed and agree with nursing and triage notes Were old charts reviewed (outside hosp., previous admission, EMS record, old EKG, old radiological studies, urgent care reports/EKG's, shelter records)? Report findings @ -No old charts were reviewed Differential Diagnosis (chest pain, altered mental status, abdominal pain women, abdominal pain men, vaginal bleeding, weakness, fever, dyspnea, syncope, headache, dizziness, GI bleed, back pain, seizure, CVA, palpatations, mental health, musculoskeletal)? @ -Differential Back Pain: Strain, zoster, cauda equina syndrome, epidural abscess, vertebral osteomyelitis, discitis, fracture, subluxation, disc herniation, DJD, spinal stenosis, dissection, AAA, pancreatitis, peptic ulcer disease, pyelonephritis, kidney stone, this is not meant to be an all-inclusive list. EKG interpreted by me (3pts min.). @ -None X-rays interpreted by me (1pt min.). @ -X-ray of lower back revealed no acute process CT interpreted by me (1pt min.). @ -None done U/S interpreted by me (1pt. min.). @ -None done What testing was considered but not performed or refused? (CT, X-rays, U/S, labs)? Why? @ -None What meds were considered but not given or refused? Why? @ -None Did you discuss the management of the patient with other professionals (professionals i.e. , PA, FIRE EXTINGUISHER TECHNICIAN, lab, RT, psych nurse, social media developer, pinball machine repairer, teacher, court registry officer, top case assembler)? Give summary @ -No Was smoking cessation discussed for >3mins.? @ -No Was critical care preformed (if so, how long)? @ -No Were there social determinants of health that impacted care today? How? (Homelessness, low income, unemployed, alcoholism, drug addiction, transportation, low edu. Level, literacy, decrease access to med. care, senior living, rehab)? @ -No Was there de-escalation of care discussed even if they declined (Discuss DNR or withdrawal of care, Hospice)? DNR status @ -No What co-morbidities impacted this encounter? (DM, HTN, Smoking, COPD, CAD, Cancer, CVA, ARF, Chemo, Hep., AIDS, mental health diagnosis, sleep apnea, morbid obesity)? @ -None Was patient admitted / discharged? Hospital course, mention meds given and route, prescriptions, significant lab abnormalities, going to OR and other pertinent info. @ -Patient was discharged. Patient was seen and evaluated for low back pain x 2 days. No red flag symptoms. Patient is neurovascularly intact. Patient was given IM Norflex and IM Toradol for pain. Urine is negative for blood, bacteria, or ketones. Urine pending. Low back x-ray negative for acute process. Upon reevaluation, patient reveals mild improvement in symptoms. Discussed there are no signs of emergent etiology upon examination today. Discussed likely diagnosis of lower back strain. Return parameters discussed and patient shows understanding and agrees. Patient prescribed analgesics to pharmacy. Case was discussed with my ED attending Dr. Covarrubias. Patient discharged in stable condition. Undiagnosed new problem with uncertain prognosis? @ -No Drug Therapy requiring intensive monitoring for toxicity (Heparin, Nitro, Insulin, Cardizem)? @ -No Were any procedures done? @ -No Diagnosis/symptom? @ -Low back strain Acute, or Chronic, or Acute on Chronic? @ -Acute Uncomplicated (without systemic symptoms) or Complicated (systemic symptoms)? @ -Uncomplicated Side effects of treatment? @ -No Exacerbation, Progression, or Severe Exacerbation? @ -No Poses a threat to life or bodily function? How? (Chest pain, [place], [place], pneumonia, PE, COPD, DKA, ARF, appy, cholecystitis, CVA, Diverticulitis, Homicidal, Suicidal, threat to staff... and all critical care pts) @ -Unlikely at this time - Lab Data Lab Results 06/21/24 Range/Units 22:13 Urine Color Yellow Urine Appearance Clear (Clear) Urine pH 6.0 (5.0-8.0) Ur Specific [place] 1.025 (1.001-1.035) Urine Protein Negative (Negative) Urine Glucose (UA) Negative (Negative) Urine Ketones Negative (Negative) Urine Blood Negative (Negative) Urine Nitrite Negative (Negative) Urine Bilirubin Negative (Negative) Urine Urobilinogen <2.0 (<2.0) mg/dL Ur Leukocyte Esterase Negative (Negative) Disposition Clinical Impression: Low back strain Disposition: HOME SELF-CARE Condition: Stable Instructions (If sedation given, give patient instructions): Acute Low Back Pain (ED) Additional Instructions: Please return to the Emergency Department if symptoms worsen or any other concerns. Prescriptions: Cyclobenzaprine [Flexeril] 10 mg PO TID PRN #15 tab PRN Reason: Muscle Spasm Lidocaine 5% Patch [Lidoderm 5% Patch] 1 patch TOPICAL DAILY 7 Days #7 patch Is patient prescribed a controlled substance at d/c from ED?: No Referrals: Maldonado Cottrell DO [Primary Care Provider] - 1-2 days Time of Disposition: 23:40
[2024-06-21] MEDS: ORPHENADRINE 30 MG/ML 2 ML VIAL IM STA (22:05)
[2024-06-21] MEDS: KETOROLAC 15 MG/ML 1 ML VIAL IM STA (22:05)
[2024-06-21 22:23] LABS: Appearance,Urine Clear (Clear); Bilirubin,Urine Negative (Negative); Blood,Urine Negative (Negative); Color,Urine Yellow; Glucose,Urine (UA) Negative (Negative); Ketones,Urine Negative (Negative); Leukocyte Esterase,Urine Negative (Negative); Nitrite,Urine Negative (Negative); Protein,Urine Negative (Negative); Specific Gravity,Urine 1.025 (1.001-1.035); Urobilinogen,Urine <2.0 mg/dL (<2.0)
--- NOTE | 2024-06-21 23:13 | XR ---
EXAMINATION TYPE: XR lumbar spine 2 or 3V DATE OF EXAM: 06/21/2024 10:04 PM CLINICAL INDICATION:Female, 34 years old with history of low back pain; [facility] COMPARISON: None TECHNIQUE: XR lumbar spine 2 or 3V - Frontal, lateral and coned in L5-S1 lateral views of the spine. FINDINGS: No evidence of any acute osseous pathology. No evidence of loss of vertebral body height i s seen. There is normal alignment of the lumbar vertebral bodies. Scattered disc space narrowing. Mul tilevel marginal osteophyte formation throughout the visualized spine. There is facet joint arthropat hy throughout the spine. Scattered at least mild neural foraminal stenosis. IMPRESSION: 1. No acute fracture. 2. Mild multilevel disc degeneration.
[2024-06-21 23:48] VITALS: BP 109/68; PULSE 81; TEMP 98.1
== END 2024-06-21 23:48 | disposition home or self-care (01) ==
LOC: EC 20:26
DX: S39.012A Strain of muscle, fascia and tendon of lower back, initial encounter (principal); F17.290 Nicotine dependence, other tobacco product, uncomplicated; Z91.09 Other allergy status, other than to drugs and biological substances; Z88.1 Allergy status to other antibiotic agents; Z91.040 Latex allergy status; Z88.0 Allergy status to penicillin; Z88.2 Allergy status to sulfonamides; X58.XXXA Exposure to other specified factors, initial encounter; Y99.0 Civilian activity done for income or pay
CPT/HCPCS: 81003; 81025; 72100; 99284; 96372 ×2; J2360; J1885

== ENCOUNTER → 2024-11-19 | Outpatient (CLI) | payer BC ==
--- NOTE | 2024-11-19 08:10 | MM ---
Reason for Exam: Screening (asymptomatic). Last mammogram was performed 12 year(s) and 2 month(s) ago. Patient History: Menarche at age 11. First Full-Term at age 20. Currently using Hormonal Contraceptives, beginning at age 20 for 2 years. Paternal aunt had breast cancer, age 58. Risk Values: Nicole 5 year model risk: 0.3%. NCI Lifetime model risk: 9.2%. Prior Study Comparison: 09/14/2012 Bilateral Diagnostic Mammogram, [facility]. Tissue Density: The breasts are heterogeneously dense, which may obscure small masses. Findings: Analyzed By CAD. There is no suspicious group of microcalcifications or new suspicious mass in either breast. Overall Assessment: Negative, BI-RAD 1 Management: Screening Mammogram of both breasts in 1 year. . Patient should continue monthly self-breast exams. A clinical breast exam by your physician is recommended on an annual basis. This exam should not preclude additional follow-up of suspicious palpable abnormalities. Note on Nicole scores and lifetime risk: 1. A Nicole score greater than 3% is considered moderate risk. If this is the case, consider specialist referral to assess eligibility for a risk reducing agent. 2. If overall lifetime risk for the development of breast cancer is 20% or higher, the patient may qualify for future screening with alternating mammogram and breast MRI. [facility], , 11/19/2024 8:07 AM. Electronically signed and approved by: Julio Cesar Sandhu M.D. Radiologis
== END | disposition home or self-care (01) ==
LOC: RADMAMWWP 06:59
PROVIDERS: ATTEND Family Medicine
DX: Z12.31 Encounter for screening mammogram for malignant neoplasm of breast (principal); Z80.3 Family history of malignant neoplasm of breast; R92.333 Mammographic heterogeneous density, bilateral breasts
CPT/HCPCS: 77063; 77067